=== PATIENT | male | born 2000 | race Caucasian/White ===

== ENCOUNTER 2021-11-15 10:55 | Outpatient (REF) | payer OTHER, SELFPAY ==
[2021-11-15 13:56] LABS: MANUAL DIFF FLAG NO
[2021-11-15 14:02] LABS: Basophils Percent Auto 0.6 % (0-2); Eosinophils Absolute Auto 0.1 X10*3/uL (0.0-0.4); Eosinophils Percent Auto 1.3 % (0-4); Hematocrit 47.2 % (42.0-52.0); Imm Gran Abs Auto 0.03 X10*3/uL (0.00-0.03); Imm Gran Pct Auto 0.5 % (0.0-0.4); Lymphocytes Absolute Auto 1.5 X10*3/uL (1.2-4.9); Lymphocytes Percent Auto 24.8 % (20-40); Mean Corpuscular HGB Conc 33.9 g/dl (31.0-36.0); Mean Corpuscular Hemoglobin 30.6 pg (27.0-33.0); Mean Corpuscular Volume 90.2 fL (80.0-98.0); Mean Platelet Volume 10.5 fL (9.4-12.4); Monocytes Absolute Auto 0.5 X10*3/uL (0.1-1.2); Monocytes Percent Auto 7.9 % (2-11); Neutrophils Percent Auto 64.9 % (45-73); Platelet Count 279 X10*3/uL (160-400); Red Blood Count 5.23 X10*6/uL (4.60-5.80); Red Cell Distribution Width 12.5 % (11.0-16.0); White Blood Count 6.2 X10*3/uL (4.8-10.8)
[2021-11-15 14:39] LABS: Alanine Aminotransferase 17 U/L (0-40); Albumin Level 4.6 g/dL (3.5-5.0); Alkaline Phosphatase 63 U/L (39-117); Anion Gap 9 (12-20); Aspartate Amino Transferase 15 U/L (5-37); Blood Urea Nitrogen 12 mg/dL (9-16); Calcium 10.2 mg/dL (8.4-10.2); Carbon Dioxide 31 mmol/L (22-29); Chloride 103 mmol/L (96-108); Cholesterol 178 mg/dL; Erythrocyte Sedimentation Rate 1 MM/HR (0-15); Estimated Glomerular Filt Rate > 60; Glucose Fasting 87 mg/dL (60-99); HDL Cholesterol 37 mg/dL; LDL Cholesterol Calculated 121 mg/dl; Potassium 4.1 mmol/L (3.3-5.1); Sodium 139 mmol/L (135-145); Triglycerides 102 mg/dL
[2021-11-15 14:58] LABS: TSH reflex Free T4 1.29 uIU/mL (0.32-4.0)
[2021-11-16 07:52] LABS: HBS Num1 41.72 mIU/mL (0-7.99); HIV AB/AG Nonreactive (Nonreactive); HIV Num 1 0.08 S/CO (0.00-0.99); ~HepC Num1 0.19 S/CO (0.00-0.79); ~Hepatitis B Surface Antibody REACTIVE (Nonreactive); ~Hepatitis C Antibody Nonreactive (Nonreactive)
[2021-11-16 08:02] LABS: Syphilis Screen Nonreactive (Nonreactive)
[2021-11-16 08:30] LABS: HBc Num1 0.07 S/CO (0.00-0.79); HBsAGNum1 0.23 S/CO (0.00-0.99); Hepatitis B Core Antibody Nonreactive (Nonreactive); Hepatitis B Surface Antigen Negative (Negative)
[2021-11-17 11:36] LABS: CRP High Sensitivity 0.3 mg/L
== END 2021-11-15 10:56 | disposition home or self-care (01) ==
LOC: HO.WFDLDS 10:55
PROVIDERS: Family Medicine; Visit Provider Internal Medicine
DX: Z00.00 Encounter for general adult medical examination without abnormal findings (principal); M24.2 Disorder of ligament; U07.1 COVID-19; Z11.3 Encounter for screening for infections with a predominantly sexual mode of transmission; Z11.4 Encounter for screening for human immunodeficiency virus [HIV]; Z13.220 Encounter for screening for lipoid disorders; Z13.29 Encounter for screening for other suspected endocrine disorder; Z11.59 Encounter for screening for other viral diseases; Z20.822 Contact with and (suspected) exposure to COVID-19
CPT/HCPCS: 36415; 80053; 80061; 84443; 85025; 85652; 86141; 86704; 86706; 86780; 86803; 87340; 87389; C9803; U0003; U0005

== ENCOUNTER 2022-01-09 12:32 | Outpatient (REF) | payer OTHER, SELFPAY | END 2022-01-09 12:33 | disposition home or self-care (01) | LOC: HO.WFDLNP 12:32 | PROVIDERS: Visit Provider Hospitalist | DX: J06.9 Acute upper respiratory infection, unspecified (principal); Z20.822 Contact with and (suspected) exposure to COVID-19 | CPT/HCPCS: U0003; U0005 ==

== ENCOUNTER 2023-03-30 09:33 | Outpatient (REF) | payer OTHER, SELFPAY ==
[2023-03-30 11:21] LABS: Appearance Urine Clear; Color Urine Yellow; Glucose Urine UA Negative (Negative); Leukocyte Esterase Urine Negative (Negative); Nitrite Urine Negative (Negative); PH 7.5 (5.0-9.0); Specific Gravity - Urine 1.015 (1.005-1.025); Urine Blood Negative (Negative); Urine Ketones Negative (Negative); Urine Protein Negative (Neg-Trace)
[2023-03-30 12:02] LABS: Creatinine Urine 60.57 mg/dL; Microalbumin Urine < 5.0 mg/L
== END 2023-03-30 09:34 | disposition home or self-care (01) ==
LOC: HO.WFDLDS 09:33
PROVIDERS: Visit Provider Family Medicine
DX: Z00.00 Encounter for general adult medical examination without abnormal findings (principal); I10 Essential (primary) hypertension
CPT/HCPCS: 81003; 82043

== ENCOUNTER 2023-04-02 07:17 | Outpatient (REF) | payer OTHER, SELFPAY ==
[2023-04-02 08:42] LABS: Alanine Aminotransferase 24 U/L (0-40); Albumin Level 4.5 g/dL (3.5-5.0); Alkaline Phosphatase 70 U/L (39-117); Anion Gap 10 (12-20); Aspartate Amino Transferase 20 U/L (5-37); Bilirubin Total 0.5 mg/dL (0.0-1.0); Blood Urea Nitrogen 17 mg/dL (9-16); Calcium 9.6 mg/dL (8.4-10.2); Carbon Dioxide 30 mmol/L (22-29); Chloride 102 mmol/L (96-108); Cholesterol 195 mg/dL; Estimated Glomerular Filt Rate > 60; Glucose Fasting 93 mg/dL (60-99); HDL Cholesterol 43 mg/dL; LDL Cholesterol Calculated 134 mg/dl; Potassium 4.3 mmol/L (3.3-5.1); Sodium 138 mmol/L (135-145); Total Protein 7.7 g/dL (6.5-8.0); Triglycerides 94 mg/dL
[2023-04-02 08:58] LABS: TSH reflex Free T4 2.15 uIU/mL (0.32-4.0)
[2023-04-04 13:59] LABS: Venous Lead 1.2 mcg/dL (<3.5)
== END 2023-04-02 07:18 | disposition home or self-care (01) ==
LOC: HO.LAB 07:17
PROVIDERS: Visit Provider Family Medicine
DX: Z00.00 Encounter for general adult medical examination without abnormal findings (principal); Z77.011 Contact with and (suspected) exposure to lead
CPT/HCPCS: 36415; 80053; 80061; 83655; 84443

== ENCOUNTER 2024-01-09 09:57 | Outpatient (AMB) | payer OTHER, SELFPAY ==
[2024-01-09 10:18] VITALS: BP 110/60; PULSE 82; TEMP 36.6; O2SAT 97; BMI 20.6
--- NOTE | 2024-01-09 10:18 | AM.OFFWIN_ITS ---
Intake Vital Signs 01/09/24 10:18 Height 6 ft Weight 152 lb BMI 20.6 BP 110/60 Blood Pressure Location Lt brachial Position Sitting Pulse 82 Pulse Source Pulse Oximeter Temp 97.9 F Temp Source Temporal Artery Scan Pulse Oximetry (%) 97 Oxygen Delivery Method Room Air Intake Visit Reasons: EP cough congestion vomiting Intake Note: pt is here today for cough congestion vomiting started Sunday Patient Tobacco Use Status: Never used Tobacco Allergies No Known Allergies Allergy (Verified 01/09/24 10:18) Do you need a note to return to daycare/school/sports/work: No HPI HPI Comments History of Present Illness Details He presents to office with flu symptoms Sunday onset He said ST; rates pain as a sharp pain with coughing +cough and some congestion Some SOB with coughing and doing stairs Vomited the cold ans flu medicine 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 Mother No problems noted. Social History Housing: House Patient Tobacco Use Status: Never used Tobacco e-Cigarette/Vaping Use: Never Used Current occupational status: employed Review of Systems [employer] Reports fatigue and Denies fever(s) ENT Reports otalgia (L sided), Reports nasal congestion, Reports sore throat and Denies throat swelling Card Denies chest pain and Reports dyspnea Resp Reports change in phlegm color, Reports chest congestion, Reports cough, Reports dyspnea and Denies wheezing GI Denies abdominal pain, Denies diarrhea and Reports vomiting Musc Denies back pain Skin/Breast Denies rash Endo Reports fatigue Aller/Immun Denies throat swelling and Denies wheezing Physical Exam Vital Signs: Last Vital Signs Temp 97.9 F 01/09/24 10:18 Pulse 82 01/09/24 10:18 BP 110/60 01/09/24 10:18 Pulse Ox 97 01/09/24 10:18 Oxygen Delivery Method Room Air 01/09/24 10:18 BMI result Body Mass Index 20.6 General: Non-toxic, NAD. Speaking full sentences. Skin: Warm dry throughout Eye: EOMI HENT: Airway patent. Uvula midline. + slight pharyngeal erythema without exudates or edema. No CHEST PAIN COORDINATOR. Bilateral canals clear. TM non-erythematous, non-bulging. No TM perforation or hemotympanum noted. Lymph: No lymphadenopathy Respiratory: CTA bilaterally. No wheezes, rales or rhonchi. + cough on examination without phlegm seen Cardiac: RRR. No murmur MSK: Full ROM extremities. Neurology: A/O. No aphasia or facial droop. Gait without abnormality Psych: Good mood and affect Assessment & Plan Assessment & Plan (1) URI (upper respiratory infection): Code(s): J06.9 - Acute upper respiratory infection, unspecified Qualifiers: URI type: unspecified viral URI Qualified Code(s): J06.9 - Acute upper respiratory infection, unspecified Plan: Patient seen and evaluated. Strep: negative in office Lungs CTA Symptoms x 4 days Tessalon for cough Most likely URI; negative covid at home and outside window for tamiflu tx. He declined RSV/flu/Covid swab Patient gave verbal understanding and had no additional questions or concerns at time of discharge All questions answered Orders: Orders AMB Rapid Strep Screen Today Z13.9 - Encounter for screening, unspecified Medications: New benzonatate 200 mg PO BID-TID PRN 14 caps 0RF cough Coding Level of Care Code Est Pt Level 3 (02509) Diagnoses Viral upper respiratory tract infection J06.9 URI type: unspecified viral URI
== END 2024-01-09 11:06 | disposition home or self-care (01) ==
PROVIDERS: PCP Family Medicine; Visit Provider Physician Assistant
DX: J06.9 Acute upper respiratory infection, unspecified (principal); J02.9 Acute pharyngitis, unspecified
CPT/HCPCS: 87880; 99213